=== PATIENT | female | born 1950 | race Caucasian/White ===

== ENCOUNTER 2017-06-17 07:21 | Day surgery (SDC) | payer MEDICARE ==
[~2017-06-17] VITALS: Ht 177.8 cm; Wt 81.8 kg
[2017-06-17] VITALS (10 sets, daily range): BP systolic 118–147; BP diastolic 64–81; PULSE 65–81; RESP 16–20; TEMP 98.1–98.4; O2SAT 90–96
[~2017-06-17 07:21] MED LIST: LEVO25TA4 PO; LEXA10TA PO; MIRA0.12 PO; PANT20TA2 PO; TRAM50TA PO; TRIA37.53 PO
[2017-06-17] MEDS ORDERED: IODIXANOL 320 MG/ML 50 ML VIAL (for RAD SPEC) I-ARTERIAL ONE (07:22)
[2017-06-17] MEDS ORDERED: SODIUM CHLOR 0.9% 1000 ML INJ 1,000 ML IV SCH (08:00)
[2017-06-17] MEDS ORDERED: ZITH250T PO (08:02)
[2017-06-17] MEDS ORDERED: FLUT1INH7 INH (08:02)
[2017-06-17] MEDS ORDERED: TRIA37.5 (08:02)
[2017-06-17] MEDS ORDERED: SPIRCAP INH (08:02)
[2017-06-17 08:11] LABS: AUTOMATED NEUTROPHIL # 4.2 TH/MM3 (1.8-7.7); BASOPHIL % 0.6 % (0.0-2.0); EOSINOPHIL # 0.2 TH/MM3 (0-0.4); EOSINOPHIL % 2.8 % (0.0-4.0); HEMOGLOBIN 13.1 GM/DL (11.6-15.3); LYMPH % 27.2 % (9.0-44.0); LYMPHOCYTE # 1.9 TH/MM3 (1.0-4.8); MEAN CELL VOLUME 88.7 FL (80.0-100.0); MEAN CORPUSCULAR HEMOGLOBIN 29.8 PG (27.0-34.0); MEAN CORPUSCULAR HGB CONC 33.6 % (32.0-36.0); MONO % 7.6 % (0.0-8.0); MONOCYTE # 0.5 TH/MM3 (0-0.9); NEUT % 61.8 % (16.0-70.0); PLATELET COUNT 237 TH/MM3 (150-450); RED BLOOD COUNT 4.39 MIL/MM3 (4.00-5.30); RED CELL DISTRIBUTION WIDTH 14.6 % (11.6-17.2); WHITE BLOOD COUNT 6.9 TH/MM3 (4.0-11.0)
[2017-06-17 08:22] LABS: PROTHROMBIN TIME - PATIENT 10.6 SEC (9.8-11.6)
[2017-06-17] MEDS ORDERED: MIDAZOLAM HCL 2 MG/2 ML VIAL ONE (11:24)
--- NOTE | 2017-06-17 12:03 | PD.RAD ---
Post Procedure Progress Note Pre Procedure Diagnosis: (1) Raynaud phenomenon (2) Ischemia of digits of hand Post Procedure Diagnosis: (1) Raynaud phenomenon (2) Ischemia of digits of hand Procedure Date: Jun 17, 2017 Supervising Radiologist: Andrea Edward JR Proceduralist/Assist: Marni Villafuerte, RT(R)(), Magdaleno Sagastume RT(R) Anesthesia: Conscious Sedation Plan of Activity Patient to Unit: ROP[facility] Patient Condition: Good See PACS Report for procedural detail/treatment Vascular-Arterial Procedure Procedure 1 Procedure Site: Right Arm Procedure(s): Angiogram Access Access Site(s): Right Femoral Artery Findings: Chronic changes of hand consistent with Raynaud's. Details given in PACS report. Jr. Wagner,Andrea Gerardo MD Jun 17, 2017 12:03
--- NOTE | 2017-06-17 12:48 | RADRPT ---
EXAM DATE/TIME: 06/17/2017 10:10 [facility] COMPARISON: No previous studies available for comparison. INDICATIONS : Patient with a history of Reynaud's syndrome. MEDICAL HISTORY : Hypertension SURGICAL HISTORY : Cholecystectomy Hysterectomy Right 3rd digit amputation Left breast lumpectomy ENCOUNTER: Initial ACUITY: 1 week PAIN SCORE: 4/10 LOCATION: Right hand FLUORO TIME: 5.4 minutes IMAGE SERIES: 6 ACCESS SITE: Right Femoral artery SEDATION TIME: 30 minutes CONTRAST: 1.) 60 cc Visipaque (iodixanol) MEDICATION(S): 1.) 2 mg midazolam (Versed) IV 2.) 100 mcg fentanyl (Sublimaze) IV DEVICE(S): 1.) Right common femoral artery Syvek pad PROCEDURE : 1. Ultrasound-guided puncture of the access site. 2. Conscious sedation with continuous EKG and Oximetry monitoring. 3. Angiography of the right upper extremity 4. Angiography of the right hand The risks, benefits and alternatives to the procedure were explained and verbal and written consent w as obtained. These risks included but were not limited to those of stroke. The site was prepped in s terile fashion. Full sterile technique was used, including cap, mask, sterile gloves and gown and a large sterile sheet. Hand hygiene and 2% chlorhexidine and/or betadine/alcohol prep was utilized per protocol for cutaneous antisepsis. Sterile gel and sterile probe cover were utilized for ultrasound guidance. The skin and subcutaneous tissues were infiltrated with local anesthetic solution. With ultrasound and fluoroscopic guidance the right common femoral artery was punctured and a vascula r sheath was placed <<A. Berenstein catheter was utilized to select the origin of the right subclavian artery. A right perez bclavian artery and proximal upper arm angiogram was performed. The catheter was then advanced into t he brachial artery in a staged right upper extremity angiogram performed. Detailed images of the hand were also performed. These images reveal patency to the subclavian, axillary, and brachial arteries. No ulceration or nidu s for embolic events observed. There is variant anatomy with a very short brachial artery that quickl y divides within the proximal humeral diaphyseal region. The ulnar artery and interosseous artery edgar ckly taper within the forearm and terminate proximal to the carpus. The radial artery is the sole sup ply to the deep palmar arch. The arch is chronically occluded towards the ulnar aspect. The first and second common digital branches are patent. The remaining are chronically occluded. Small collateral vessels are seen within the region of the metacarpal bones at the third fourth and fifth levels. The proper digital branches are heavily diseased throughout. The first digit has a very tortuous solitary digital branch that supplies that finger. The second digit shows an ulnar proper digital branch that no radial digital branch. There is hyperemia involving the tip of the finger. The third finger shows amputation at the level of the head of the proximal phalanx. No proper digital branch observed invol ving the residual finger. The fourth finger shows a small caliber radial and ulnar proper digital bra nches are patent to the level of the distal metaphysis of the proximal phalanx. Distal to this there is no named vessel. This would correlate with the ischemic changes seen involving that digit on physi daniel exam. The fifth finger shows an ulnar proper digital branch that is patent throughout. There is a very small caliber short segment radial proper digital branch proximally that quickly tapers proxima l to the PIP joint. There is some hyperemia involving the nailbed. The puncture site was closed with manual pressure and hemostasis was obtained. The patient tolerated the procedure well and there were no complications. Conscious sedation was performed with the prescribed dosages and duration as above in the presence of an independent trained radiology nurse to assist in the monitoring of the patient. EKG and oximetry remained stable throughout the procedure. CONCLUSION: 1. Severe peripheral disease consistent with a history of Raynaud's disease. The patient has an amput ated third digit. The fourth digit is extremely deficient in arterial supply with no proper digital b ranches distal to the proximal phalanx. Complete anatomy detailed in the above discussion. Andrea Edward Jr., MD on June 17, 2017 at 12:33 Board Certified Radiologist. This report was verified electronically.
== END 2017-06-17 16:00 | disposition home or self-care (01) ==
LOC: HROP 07:21 → HRIP 07:32 → HROP 16:00
PROVIDERS: ATTEND Orthopaedic Surgery Hand Surgery
DX: I73.00 Raynaud's syndrome without gangrene (principal); I99.8 Other disorder of circulatory system; I73.9 Peripheral vascular disease, unspecified; I10 Essential (primary) hypertension; F17.200 Nicotine dependence, unspecified, uncomplicated
CPT/HCPCS: 36217; 75710; 75774; 76937; 85025; 85610; 85730; 99152; 99153; C1769; C1887; C1894; J2250; J3010; J7030; Q9967

== ENCOUNTER → 2017-06-26 | Outpatient (CLI) | payer MEDICARE ==
[~2017-06-26] MED LIST changes: +BUPIVACAINE HCL PF 0.5% 30 ML VIAL ONE; +CEPH-460 PO; +FLUT1INH7 INH; +LEVO125T4 PO; +MIRA0.75 PO; +PERC5TAB12 PO; +PRED5TAB PO; +PROT40TA PO; +SIMV20TA PO; +SPIRCAP INH; +TRIA37.5; +VENTAER INH; +ZITH250T PO
[2017-06-26 12:21] LABS: AUTOMATED NEUTROPHIL # 7.5 TH/MM3 (1.8-7.7); BASOPHIL % 0.3 % (0.0-2.0); EOSINOPHIL # 0.1 TH/MM3 (0-0.4); EOSINOPHIL % 0.8 % (0.0-4.0); HEMATOCRIT 38.8 % (35.0-46.0); HEMOGLOBIN 12.5 GM/DL (11.6-15.3); LYMPH % 12.5 % (9.0-44.0); LYMPHOCYTE # 1.2 TH/MM3 (1.0-4.8); MEAN CELL VOLUME 88.7 FL (80.0-100.0); MEAN CORPUSCULAR HEMOGLOBIN 28.5 PG (27.0-34.0); MEAN CORPUSCULAR HGB CONC 32.1 % (32.0-36.0); MEAN PLATELET VOLUME 6.9 FL (7.0-11.0); MONO % 4.1 % (0.0-8.0); MONOCYTE # 0.4 TH/MM3 (0-0.9); NEUT % 82.3 % (16.0-70.0); PLATELET COUNT 366 TH/MM3 (150-450); RED BLOOD COUNT 4.38 MIL/MM3 (4.00-5.30); RED CELL DISTRIBUTION WIDTH 13.8 % (11.6-17.2); WHITE BLOOD COUNT 9.2 TH/MM3 (4.0-11.0)
[2017-06-26 12:25] LABS: BILIRUBIN, URINE NEG (NEG); BLOOD, URINE NEG (NEG); GLUCOSE,URINE NEG (NEG); KETONE, URINE NEG (NEG); NITRITE,URINE NEG (NEG); URINE LEUKOCYTE ESTERASE SMALL (NEG)
[2017-06-26 12:32] LABS: AMORPHOUS SEDIMENT, URINE SMALL; SQUAMOUS EPITHELIAL CELL URINE 0-5 /hpf (0-5); URINE COLOR YELLOW (YELLW/STRAW); WBC, URINE 0-2 /hpf (0-5)
--- NOTE | 2017-06-26 20:14 | EKG ---
Date Performed: 06/26/2017 Time Performed: 11:52:48 PTAGE: 67 years EKG: Sinus rhythm MARKED LEFT AXIS DEVIATION INCOMPLETE RIGHT BUNDLE BRANCH BLOCK MODERATE T-WAVE ABNORMALITY, CONSIDE R ANTEROLATERAL ISCHEMIA ABNORMAL ECG NO PREVIOUS TRACING DOCTOR: Logan Cartagena Interpretating Date/Time 06/26/2017 20:13:38
--- NOTE | 2017-06-30 08:03 | M6 ---
cc: OLINDA BISHOP M.D. DATE 06/26/2017 DATE OF 1950 PROCEDURE Right stellate ganglion block. History and physical was completed and signed. Consent was signed. Procedure site was marked. Medications were listed and reconciled. Pain score was recorded. Allergies were noted. Time out was taken. Fluoroscopy time was recorded where applicable. PROCEDURE NOTE Blood pressure cuff, pulse oximeter and EKG were applied. The patient was placed in the supine position on a Pino table. Her cervical area was prepped with alcohol and 10% Betadine solution. Fluoroscopy was used to visualize the C6 vertebra. The right carotid artery was retracted laterally. The skin was infiltrated with 1% Xylocaine using a 27 gauge needle. Then a blunt, beveled 22-gauge IV regional needle was placed down to contact the ventral surface of the sixth cervical vertebra. There was negative aspiration for blood or any other type of fluid and the patient was given 6 mL of 0.5% Marcaine. The needle was withdrawn. The patient was placed in a 45 degree semirecumbent position and taken to the recovery room with stable vital signs. W. MD GONZALO Bains/SAMUEL /11:36 AM /7:52 AM
== END ==
LOC: PHPRE 10:50
PROVIDERS: ATTEND Pain Medicine Interventional Pain Medicine
DX: M54.2 Cervicalgia (principal); R94.31 Abnormal electrocardiogram [ECG] [EKG]; Z01.810 Encounter for preprocedural cardiovascular examination
CPT/HCPCS: 36415; 64510; 81001; 84132; 85025; 93005

== ENCOUNTER → 2017-07-14 | Day surgery (SDC) | payer MEDICARE ==
[~2017-07-14] VITALS: Ht 180.3 cm; Wt 82.0 kg
[~2017-07-14] MED LIST changes: -BUPIVACAINE HCL PF 0.5% 30 ML VIAL ONE; +CHLORHEXIDINE GLUCONATE 2 % 1 PACK (2 CLOTHS) TOPICAL PRN; +LACTATED RINGER'S 1000 ML IV PRN; -LEVO25TA4 PO; +LIDOCAINE 1%/EPINEPHrine 1:100,000 SOLN 30 ML VIAL ONE; +LIDOCAINE HCL 1% PF 5 ML SYRINGE OTHER ONE; +METOPROLOL TARTRATE 25 MG TAB PO PRN; -MIRA0.12 PO; -PANT20TA2 PO; +POVIDONE IODINE 5% (ANTISEPSIS KIT) 4 APPLICATIONS EACH NARE PRN; +PROPOFOL 200 MG/20 ML AMP IV ONE; +SODIUM CHLORID 0.9% 500 ML IV PRN; -TRIA37.5; +VANCOMYCIN 500 MG/NS 100 ML IV SCH; +ceFAZolin 1,000 MG/NS 100 ML IV SCH
[2017-07-14 12:45] VITALS: PULSE 94; TEMP 98.2
[2017-07-14 14:00] VITALS: BP 140/65; PULSE 96; RESP 16; O2SAT 96
--- NOTE | 2017-07-15 10:27 | MP ---
cc: Jose Tang MD DATE OF OPERATION: 07/14/2017 PROCEDURE: Implantation of dual-channel rechargeable pulse generator from [employer] for spinal cord stimulation. PREPROCEDURE DIAGNOSIS: Raynaud disease with severe ischemic neuropathy, right upper extremity. PROCEDURE NOTE: IV was started in the holding area. The patient was given IV antibiotics. The surgical site was marked. The consent form was signed. The patient was taken to the operating room, given general LMA anesthesia, placed in the right lateral decubitus position. All pressure points were checked and padded. Then the distal extension wire in her left flank was prepped with alcohol and cut with sterile scissors. Then the patient's thoracic and abdominal area was prepped with ChloraPrep and draped with sterile drapes. Then the thoracic midline incision was infiltrated with 1% lidocaine containing epinephrine and the left subcostal region was also infiltrated. Then the thoracic incision was reopened by cutting the sutures and the stimulating lead and distal extension wire were exteriorized. The distal extension wire was disconnected from the stimulating lead by loosening an Andriy screw. Then an incision was made in the left subcostal region and a subcutaneous pocket was created. Then a tunneling device was used to tunnel the stimulating lead from the thoracic area to the left subcostal incision. Then the [employer] dual-channel rechargeable pulse generator was attached to the stimulating lead by tightening an Andriy screw. A dummy plug was placed in the second port and the Andriy screw was tightened. Then impedance was checked at the bedside and found to be appropriate in all of her electrodes. Each incision was irrigated with a small amount of Betadine solution. The pulse generator was placed in the abdominal subcutaneous pocket with the letter side facing the skin, then anchored to the underlying fascia using two 2-0 Ethibond sutures. Then closure took place with 3-0 Monocryl in the subcuticular tissue and 3-0 nylon on the skin. The incisions were covered with sterile adhesive dressings and the patient was taken to the recovery room stable with stable vital signs. MD ZULEMA RiveraM/REHANA , 12:44 PM , 10:24 AM
== END | disposition home or self-care (01) ==
LOC: PHSDC 09:17
PROVIDERS: ATTEND Pain Medicine Interventional Pain Medicine
DX: I73.00 Raynaud's syndrome without gangrene (principal); G56.81 Other specified mononeuropathies of right upper limb
CPT/HCPCS: 00300; 63685; C1767; J0690; J3010; J3370; J7120

== ENCOUNTER → 2017-08-06 | Day surgery (SDC) | payer MEDICARE ==
[~2017-08-06] VITALS: Ht 180.3 cm; Wt 77.5 kg
[~2017-08-06] MED LIST changes: +BUPIVACAINE HCL PF 0.25% 30 ML VIAL ONE; +BUPIVACAINE HCL PF 0.5% 10 ML VIAL ONE; +CEPH500T PO; +FAMOTIDINE 20 MG/2 ML VIAL ONE; +HYDR-3288 PO; +LACTATED RINGER'S 1000 ML INJ 1,000 ML ONE; -LIDOCAINE 1%/EPINEPHrine 1:100,000 SOLN 30 ML VIAL ONE; -LIDOCAINE HCL 1% PF 5 ML SYRINGE OTHER ONE; +LIDOCAINE HCL 2% 50 ML VIAL ONE; +MIDAZOLAM HCL 2 MG/2 ML VIAL ONE; +NEOMYCIN/POLYMYXIN 1 ML G.U. IRRIGANT ONE; -PROPOFOL 200 MG/20 ML AMP IV ONE; -VANCOMYCIN 500 MG/NS 100 ML IV SCH; +VITA1CAP7 PO
[2017-08-06 11:00] VITALS: PULSE 81
[2017-08-06 11:30] VITALS: PULSE 78
--- NOTE | 2017-08-06 13:06 | MP ---
cc: Abram Chapin MD DATE OF OPERATION: 08/06/2017 PREOPERATIVE DIAGNOSIS: Right ring finger dry gangrene and intractable pain. PROCEDURE PERFORMED: Right ring finger partial amputation to the PIP joint with neurectomies. SURGEON: Abram Chapin III, MD DETAILS OF PROCEDURE: The patient was brought to the operating room and placed supine on the operating table. After the correct site and side of surgery were verified by members of each team in the room multiple times including the patient and myself and, after adequate upper extremity block was achieved and IV sedation accomplished, the right upper extremity was prepped and draped. Flaps were diagramed on the middle finger around the PIP joint. The limb was gently exsanguinated with an Dillon wrap, which was then secured at the mid-forearm for a total of 25 minutes and the finger was then sharply amputated at the PIP joint with a large dorsal flap. All tissues were viable that were left behind. The articular cartilage from the proximal phalanx was then resected and the distal end of the proximal phalanx smoothed over. Soft tissue was pulled over the bone from the extensor tendon as well as the volar plate and this was secured using 3-0 Vicryl sutures. Neurectomies were performed down to the MP flexion crease of both digital nerves. Thorough irrigation with a liters worth of saline was performed and the skin edges were reapproximated using interrupted and running 4-0 chromic sutures. They were tailored along the way for the nicest contour and overall cosmetic result. The tourniquet was then released and the finger became immediately soft, pink and warm and had brisk capillary refill of less than 2 seconds, including the dorsal flap. There was no hematoma formation or bleeding. The hand and arm were thoroughly cleansed and dried. Betadine and Adaptic was applied on top of the wound, followed by a bulky, soft dressing and a gentle circumferential dressing in the usual fashion. The patient was awakened from anesthesia and transported to the Postanesthesia Care Unit awake and in stable condition. Sponge, needle and instrument counts were correct at the end of the case as reported by the nurses in the room. MD MARGUERITE Mccarthy/SHONA , 12:39 PM , 01:04 PM
[2017-08-06 13:30] VITALS: BP 136/72; PULSE 84; RESP 16; TEMP 98.1; O2SAT 94
== END | disposition home or self-care (01) ==
LOC: PHSDC 09:35
PROVIDERS: ATTEND Orthopaedic Surgery Hand Surgery
DX: I73.01 Raynaud's syndrome with gangrene (principal); M79.644 Pain in right finger(s); J44.9 Chronic obstructive pulmonary disease, unspecified
CPT/HCPCS: 01830; 26951; 88305; 88311; J0690; J2250; J7120